=== PATIENT | male | born 1965 | race Caucasian/White ===

== ENCOUNTER 2024-11-17 14:54 | Emergency (ER) | payer BC, SELFPAY ==
[2024-11-17 15:06] VITALS: BP 131/94; PULSE 67; RESP 16; TEMP 36.3; O2SAT 100
--- NOTE | 2024-11-17 15:14 | ED.EAR ---
HPI - Ear Problem General Chief complaint: Ear Stated complaint: Ear Pain Source: patient Mode of arrival: ambulatory Limitations: no limitations History of Present Illness HPI Narrative: Patient is a 59 year old male who presents to the clinic with complaints of left ear pain and muffled hearing x 3 days. He states that he had a pool and has been swimming a lot; however, he usually wears ear plugs. He states that he had swimmer's ear last year and had some leftover ear drops of ofloxacin that he has been putting in his ear for the last 3 days. Denies any fevers, chills, body aches, nausea, vomiting, or diarrhea. Related Data Home Medications ?Medication ?Instructions ?Recorded ?Confirmed ?Last Taken ?Type amlodipine 5 mg tablet mg 11/17/24 Unknown History losartan 100 tablet 11/17/24 Unknown History mg-hydrochlorothiazide 12.5 mg tablet Allergies Allergy/AdvReac Type Severity Reaction Status Date / Time Penicillins Allergy Severe Rash Verified 11/17/24 15:06 Review of Systems Review of Systems: GENERAL: Denies fever, chills, or decreased activity. EYES: Denies any eye discharge or redness. ENT: Denies sore throat, congestion, or rhinorrhea. Reports L ear pain and muffled hearing. RESP: Denies any cough, wheezing, or difficulty breathing. CARDIOVASCULAR: Denies any rapid heart rate or cool extremities. ABDOMINAL: Denies any constipation, vomiting, diarrhea, or decreased food intake. : Denies any hematuria, foul smelling urine, or decreased urine frequency. SKIN: Denies any lesions, rashes, bruises. MUSCULOSKELETAL: Denies any pain or swelling. NEURO: Denies any lethargy, irritability, or seizures. PSYCH: Denies abnormal interaction with family and friends. All systems reviewed & are unremarkable except as noted in HPI and below Exam Narrative: GENERAL: Well nourished, well developed, no acute distress. Well appearing, non-toxic. EYES: PERRL, EOMs normal, conjunctivae normal. ENT: Head normocephalic and atraumatic. Nose normal without drainage. L ear canal with cerumen impaction. Irrigation performed. L TM with normal light reflex after irrigation. R TM clear with normal light reflex. Pharynx without erythema or edema. Uvula midline. Neck supple. No lymphadenopathy. Full ROM of neck. Mucous membranes moist. RESP: No sign of respiratory distress. Clear to auscultation bilaterally. CARDIOVASCULAR: Regular rate and rhythm. No murmurs, rubs, or gallops appreciated. ABDOMINAL: Soft, nontender, nondistended. Normal bowel sounds. MUSC/SKEL: Good strength, good range of movement. Moves all extremities equally. NEURO: Alert. Good coordination. SKIN: Warm, dry, no rash, normal cap refill. Skin turgor normal. PSYCH: Affect and mood appropriate. Course Course Level of Care: Express Care Visit Vital Signs Vital signs: Vital Signs Temperature 97.4 F L 11/17/24 15:06 Pulse Rate 67 11/17/24 15:06 Respiratory Rate 16 11/17/24 15:06 Blood Pressure 131/94 H 11/17/24 15:06 Pulse Oximetry 100 11/17/24 15:06 Temperature 97.4 F L 11/17/24 15:06 Pulse Rate 67 11/17/24 15:06 Respiratory Rate 16 11/17/24 15:06 Blood Pressure 131/94 H 11/17/24 15:06 Pulse Oximetry 100 11/17/24 15:06 Reviewed. Procedures Ear Wax Removal Left Ear: Results: Re-examined: cerumen removed completely TM Examination: TM(s) intact, normal appearance Patient Tolerated Procedure: well and no complications Complications: no problems Technique: ear canal irrigated and ear canal curetted Additional Comments: Used half peroxide and half water Medical Decision Making MDM Narrative Medical decision making narrative: Discussed physical exam findings. Cerumen irrigation of L ear. Advised supportive measures and signs/symptoms to go to the ER. Pt is appropriate for outpatient treatment and follow up. Differential Diagnosis Differential Diagnosis: Otitis media, Otitis externa, Cerumen impaction. Vital Signs Vital Signs: Vital Signs Temperature 97.4 F L 11/17/24 15:06 Pulse Rate 67 11/17/24 15:06 Respiratory Rate 16 11/17/24 15:06 Blood Pressure 131/94 H 11/17/24 15:06 Pulse Oximetry 100 11/17/24 15:06 Temperature 97.4 F L 11/17/24 15:06 Pulse Rate 67 11/17/24 15:06 Respiratory Rate 16 11/17/24 15:06 Blood Pressure 131/94 H 11/17/24 15:06 Pulse Oximetry 100 11/17/24 15:06 Reviewed. Critical Care Time Critical Care Time Critical Care Time: No Discharge Plan Discharge Clinical Impression: Cerumen impaction Qualifiers: Laterality: left Qualified Code(s): H61.22 - Impacted cerumen, left ear Patient Disposition: Home Condition: Stable Instructions: Earache (ED) Additional Instructions: Please use earwax softening agent such as [id number] Debrox or a mixture 1 part hydrogen peroxide in 1 part warm water several times weekly to keep your earwax soft and prevent further infection. You may use Tylenol or ibuprofen for pain. Follow up with your primary care provider as needed in 1 week. Go to the ER for worsening symptoms or concerns Patient Language: Romanian Prescriptions: No Action amlodipine 5 mg tablet losartan-hydrochlorothiazide 100-12.5 mg tablet Follow-up/Referrals: PHYSICIAN,[facility] [employer] [Primary Care Provider] - Stand Alone Forms: Work/School Release IP Time of Disposition: 15:33
== END 2024-11-17 15:44 | disposition home or self-care (01) ==
DX: H61.22 Impacted cerumen, left ear (principal)
CPT/HCPCS: 69210; 99202; A9270; G0463